=== PATIENT | male | born 1960 | race Caucasian/White ===

== ENCOUNTER 2023-11-20 08:58 | Day surgery (SDC) | payer BC, SELFPAY ==
[2023-11-18 14:25] VITALS: BMI 29.6
--- NOTE | 2023-11-19 09:55 | HO.ANESPROP2 ---
Documented by User: Nuvia Lane NP 11/19/23 09:55 HPI - Anesthesia Eval Consult details Narrative: 63yo M for Colonoscopy [facility] Past Medical History Medical History Hyperlipidemia Vitamin D deficiency Tubular adenoma Elevated PSA Surgical History Surgical History H/O prostate biopsy History of shoulder surgery Hx of cholecystectomy History of repair of ACL H/O colonoscopy Social History Social History Advance Directives: No Advance Directives Information Provided: Yes Meds Allergies Allergy/AdvReac Type Severity Reaction Status Date / Time No Known Allergies Allergy Verified 11/18/23 14:22 Home Medications ?Medication ?Instructions ?Recorded ?Confirmed ?Last Taken ?Type No Known Home Meds 11/18/23 11/18/23 Unknown History Exam Height,Weight and Vital Signs: Height 6 ft Weight 98.883 kg Assessment and Plan Assessment Anesthesia Assessment: Chart Reviewed Documented by User: Tracy Cronin MD 11/20/23 09:13 PMFSH Past Medical History Medical History Hyperlipidemia Vitamin D deficiency Tubular adenoma Elevated PSA Family History Family history of problems with anesthesia: No Surgical History Surgical History H/O prostate biopsy History of shoulder surgery Hx of cholecystectomy History of repair of ACL H/O colonoscopy History of Problems with Anesthesia: No Social History Social History Advance Directives: No Advance Directives Information Provided: Yes Meds Allergies Allergy/AdvReac Type Severity Reaction Status Date / Time No Known Allergies Allergy Verified 11/18/23 14:22 Home Medications ?Medication ?Instructions ?Recorded ?Confirmed ?Last Taken ?Type No Known Home Meds 11/18/23 11/18/23 Unknown History Exam Airway Mallampati Class: II TM Dist: >3cm Neck ROM: Full Heart: rrr Lungs: cta Assessment and Plan Assessment Anesthesia Assessment: Anesthesia Plan Discussed Final Anesthetic Review Family History of Problems with Anesthesia: No History of Problems with Anesthesia: No NPO: Yes ASA Class: I Final Preanesthetic Review: No Changes in Pt Med Stat, Meds/Allgs Chart Reviewed, Consent Obtained/Reviewed and Anes Risks/Benef Reviewed Patient Risk: Low Procedure Risk: Low Anesthetic Plan Anesthetic Plan: MAC: Disposition: Standard PACU
[2023-11-20 09:09] VITALS: BP 125/85; PULSE 62; RESP 16; TEMP 36.8; O2SAT 99; BMI 29.3
[2023-11-20] MEDS: Lactated Ringers 1,000 ML 100 ML IVCONT (09:24)
--- NOTE | 2023-11-20 09:58 | P.HPSUR_ITS ---
Pre-Procedural Eval Section A - 24 Hr Update-Section A only Date of Service: 11/20/23 Section B - Complete if H&P > 30 days Chief Complaint: Encounter for screening for malignant neoplasm of Details of Present Illness: see H&P no changes Relevant Family History (Specify if Yes): No Relevant Social History: None Present Medications: see Short Stay Collaborative assessment Medical History: No relevant PMH History of Previous Operations: No relevant previous surgery Allergies: Allergies Allergy/AdvReac Type Severity Reaction Status Date / Time No Known Allergies Allergy Verified 11/18/23 14:22 Review of Systems Sugical H&P ROS: Negative: Constitution, Cardiovascular, Respiratory, Neurological, Psychiatric, Hem-Onc, Allergic/Immunologic, Gastrointestinal, Genitourinary, Musculoskeletal, Integumentary, Endocrine and Eyes/Ears/No se/Throat Exam Surgical H&P Exam: Normal: HEENT, Normal: Heart, Normal: Lungs, Normal: Extremities, Normal: Abdomen, Normal: Skin and Normal: Neurological Plan Diagnosis/Plan: Unchanged I have reviewed the history and physical and performed a pertinent physical examination on my patient. No changes have occurred unless specified. Time Spent With Patient Time: Total time managing care of this patient today ____ minutes.
[2023-11-20 10:25] VITALS: BP 110/63; PULSE 67; RESP 12; TEMP 36.6; O2SAT 97
[2023-11-20 10:40] VITALS: BP 114/72; PULSE 67; RESP 15; TEMP 36.6; O2SAT 98
--- NOTE | 2023-11-20 10:59 | OP_ITS ---
DATE OF SERVICE: 11/20/2023 SURGEON: Juan Maria MD INDICATIONS: Colon cancer screening and prior history of colon polyps. PREOPERATIVE DIAGNOSIS: POSTOPERATIVE DIAGNOSIS: PROCEDURE PERFORMED: Colonoscopy to the terminal ileum with biopsy. ESTIMATED BLOOD LOSS: COMPLICATIONS: ANESTHESIA: Monitored anesthesia care. ASSISTANTS: SPECIMENS: DESCRIPTION OF PROCEDURE: A history and physical performed. The risks and benefits of the procedure were explained to the patient. Informed consent was obtained. The patient was placed in the left lateral decubitus position. A digital rectal exam was performed and was found to be normal. The Olympus pediatric colonoscope was introduced into the rectum and advanced to the cecum. The cecum was identified by transillumination, palpation, and identification of ileocecal valve. Examination was performed. The scope was removed. He tolerated the procedure well and was taken to recovery in stable condition. FINDINGS: The terminal ileum was examined and appeared normal. The visualized colonic mucosa was normal. The quality of the prep was good. A single polyp measuring less than 5 mm identified at 15 cm removed with biopsy forceps. No other polyps were identified. There was tcyx-en-fofrjhet sigmoid diverticulosis. Retroflexed examination showed some internal hemorrhoids. IMPRESSION: Colon polyp. RECOMMENDATION: Follow up the biopsy results. MD KENYA Bello/LEIDY / [id number]
== END 2023-11-20 11:25 | disposition home or self-care (01) ==
PROVIDERS: PCP Family Medicine; Visit Provider Internal Medicine Gastroenterology
PROC: 0DJD8ZZ Inspection of Lower Intestinal Tract, Via Natural or Artificial Opening Endoscopic (ICD-10-PCS; CPT 45378; principal; 2023-11-20 10:50)
DX: Z12.11 Encounter for screening for malignant neoplasm of colon (principal); Z86.010 Personal history of colon polyps; K63.5 Polyp of colon; K57.30 Diverticulosis of large intestine without perforation or abscess without bleeding; K64.8 Other hemorrhoids; R97.20 Elevated prostate specific antigen [PSA]; E78.5 Hyperlipidemia, unspecified; E55.9 Vitamin D deficiency, unspecified; Z90.49 Acquired absence of other specified parts of digestive tract; Z87.891 Personal history of nicotine dependence
CPT/HCPCS: 45380; 88305; J2704